=== PATIENT | male | born 1985 | race Two or more races ===

== ENCOUNTER 2020-04-02 07:53 | Emergency (ER) | payer MEDICARE, OTHER ==
[~2020-04-02] VITALS: Ht 188 cm; Wt 113.4 kg
[2020-04-02] MEDS ORDERED: DexAMETHasone SOD PHOS 10MG/1ML VIAL INJ IV ONE (08:15)
[2020-04-02 10:14] LABS: Basophils # (auto) 0 10 ^3/uL (0-0.2); Basophils % (auto) 0.5 % (0.0-2.0); Eosinophils # (auto) 0 10 ^3/uL (0-0.8); Eosinophils % (auto) 0.3 % (0.0-7.0); Hematocrit 48.5 % (41.0-53.0); Hemoglobin 16.4 g/dL (13.5-17.5); Lymphocytes # (auto) 1.4 10 ^3/uL (0.4-5.4); Lymphocytes % (auto) 24.5 % (10.0-50.0); Mean Corpuscular Hgb Conc. 33.8 g/dL (32.0-36.0); Mean Corpuscular Volume 88.6 fL (80.0-100.0); Monocytes # (auto) 0.4 10 ^3/uL (0-1.3); Monocytes % (auto) 7.8 % (0.0-12.0); Neutrophils # (auto) 3.8 10 ^3/uL (1.6-8.6); Neutrophils % (auto) 66.9 % (37.0-80.0); Nucleated Red Blood Cells % 0.3 %; Platelet Count (auto) 180 10^3/uL (140-450); Red Blood Cells 5.47 10^6/uL (4.5-5.90); Red Cell Distribution Width 13.9 % (11.8-14.3); White Blood Cell 5.7 10^3/uL (4.4-10.8)
[2020-04-02 10:32] LABS: Albumin 3.8 g/dL (3.4-5.0); Anion Gap 5 (5-15); Blood Urea Nitrogen 9 mg/dL (7-18); Calcium 8.4 mg/dL (8.5-10.1); Carbon Dioxide 27 mmol/L (21-32); Chloride 105 mmol/L (98-107); Glucose 97 mg/dL (74-106); Potassium 4.1 mmol/L (3.5-5.1); Sodium 137 mmol/L (136-145)
[2020-04-02 10:42] LABS: Alanine Aminotransferase 70 U/L (16-61); Alkaline Phosphatase 74 U/L (45-117); Aspartate Aminotransferase 37 U/L (15-37); BUN/Creatinine Ratio 10.1; Bilirubin, Total 0.4 mg/dL (0.2-1.0); CRP High Sensitivity 2.26 mg/dL (< 0.3); GFR African American 125 mL/min; GFR Non-African American 103 mL/min; Total Protein 7.8 g/dL (6.4-8.2)
[2020-04-02 12:51] VITALS: BP 132/88
== END 2020-04-02 13:00 | disposition home or self-care (01) ==
LOC: ER 07:53
DX: U07.1 COVID-19 (principal); J12.89 Other viral pneumonia; I10 Essential (primary) hypertension
CPT/HCPCS: 36415; 71045; 80053; 82728; 83605; 84484; 85025; 86141; 96374; 99284; J1100

== ENCOUNTER 2023-08-29 09:25 | Inpatient (IN) | payer MEDICARE, MEDICAID ==
[~2023-08-29] VITALS: Ht 193 cm; Wt 112.3 kg
[2023-08-29 10:48] LABS: Basophils # (auto) 0 10 ^3/uL (0-0.2); Basophils % (auto) 0.3 % (0.0-2.0); Eosinophils # (auto) 0.1 10 ^3/uL (0-0.8); Eosinophils % (auto) 0.6 % (0.0-7.0); Hematocrit 49.1 % (41.0-53.0); Hemoglobin 16.8 g/dL (13.5-17.5); Lymphocytes # (auto) 1.5 10 ^3/uL (0.4-5.4); Lymphocytes % (auto) 18.1 % (10.0-50.0); Mean Corpuscular Hemoglobin 30.7 pg (28.0-32.0); Mean Corpuscular Hgb Conc. 34.2 g/dL (32.0-36.0); Mean Corpuscular Volume 89.8 fL (80.0-100.0); Monocytes # (auto) 1.1 10 ^3/uL (0-1.3); Monocytes % (auto) 13.2 % (0.0-12.0); Neutrophils # (auto) 5.7 10 ^3/uL (1.6-8.6); Neutrophils % (auto) 67.8 % (37.0-80.0); Nucleated Red Blood Cells % 0.1 %; Red Blood Cells 5.46 10^6/uL (4.5-5.90); Red Cell Distribution Width 15.4 % (11.8-14.3); White Blood Cell 8.4 10^3/uL (4.4-10.8)
[2023-08-29 10:59] LABS: Alanine Aminotransferase 32 U/L (7-40); Albumin 4.7 g/dL (3.2-4.8); Alkaline Phosphatase 44 U/L (46-116); Anion Gap 6 (5-15); Aspartate Aminotransferase 26 U/L (13-40); BUN/Creatinine Ratio 6.4 (10.0-20.0); Bilirubin, Total 0.5 mg/dL (0.2-1.0); Blood Urea Nitrogen 7 mg/dL (9-23); Calcium 8.9 mg/dL (8.5-10.1); Carbon Dioxide 28 mmol/L (20-30); Chloride 105 mmol/L (98-107); Glucose 84 mg/dL (74-106); Potassium 4.4 mmol/L (3.5-5.1); Sodium 139 mmol/L (136-145); Total Protein 6.8 g/dL (5.7-8.2)
[2023-08-29] MEDS: cefTRIAXone 1GM/50ML D5W 50 ML IV ONE (12:00)
[2023-08-29] MEDS: IBUPROFEN 600 MG TAB PO ONE (12:01)
[2023-08-29] MEDS: AZITHROMYCIN 500MG/ 250ML 250 ML IV ONE (12:03)
[2023-08-29] MEDS: SODIUM CHLORIDE 0.9% 1,000 ML IV SCH (14:00)
[2023-08-29] MEDS ORDERED: ALBUTEROL SULF 2.5 MG/0.5ML(0.5%) NEB SOLN NEB PRN (14:00)
[2023-08-29] MEDS ORDERED: MORPHINE SULFATE INJ 2 MG/ml SYRG IV PRN (14:00)
[2023-08-29] MEDS ORDERED: NITROGLYCERIN 0.4 MG SL TAB SL PRN (14:00)
[2023-08-29 20:13] VITALS: BP 135/87; PULSE 113; RESP 16; TEMP 98.2; O2SAT 95; O2SAT 96
[2023-08-29] MEDS: MORPHINE SULFATE INJ 2 MG/ml SYRG IV PRN (22:53)
[2023-08-29] MEDS: ONDANSETRON HCL 4 MG/2 ML VIAL IV PRN (22:53)
[2023-08-30] VITALS (11 sets, daily range): BP systolic 117–140; BP diastolic 60–78; PULSE 63–103; RESP 16–21; TEMP 97.9–98.6; O2SAT 91–98
[2023-08-30 01:29] LABS: Urine Bacteria None Seen /hpf (None Seen)
[2023-08-30 01:40] LABS: Urine Blood Negative /uL (Negative); Urine Clarity Clear (Clear); Urine Color Colorless (Yellow); Urine Protein, UAD Negative (Negative); Urine Specific Gravity 1.004 (1.001-1.035); Urine Urobilinogen Normal (Negative); Urine WBC <1 /hpf (0 - 3); Urine pH 6.5 (5.0-9.0)
[2023-08-30] MEDS ORDERED: CHOL20007 PO (03:00)
[2023-08-30] MEDS ORDERED: LISD20CA PO (03:00)
[2023-08-30] MEDS ORDERED: ATOR10TA PO (03:00)
[2023-08-30] MEDS ORDERED: LISI10TA34 PO (03:00)
[2023-08-30 07:50] LABS: Basophils # (auto) 0 10 ^3/uL (0-0.2); Basophils % (auto) 0.3 % (0.0-2.0); Eosinophils # (auto) 0.1 10 ^3/uL (0-0.8); Eosinophils % (auto) 1.1 % (0.0-7.0); Hematocrit 46.5 % (41.0-53.0); Hemoglobin 15.6 g/dL (13.5-17.5); Lymphocytes # (auto) 2.7 10 ^3/uL (0.4-5.4); Lymphocytes % (auto) 35.2 % (10.0-50.0); Mean Corpuscular Hemoglobin 30.2 pg (28.0-32.0); Mean Corpuscular Hgb Conc. 33.6 g/dL (32.0-36.0); Monocytes # (auto) 1.1 10 ^3/uL (0-1.3); Monocytes % (auto) 14.8 % (0.0-12.0); Neutrophils # (auto) 3.7 10 ^3/uL (1.6-8.6); Neutrophils % (auto) 48.6 % (37.0-80.0); Nucleated Red Blood Cells % 0.1 %; Red Blood Cells 5.17 10^6/uL (4.5-5.90); Red Cell Distribution Width 15.3 % (11.8-14.3); White Blood Cell 7.7 10^3/uL (4.4-10.8)
[2023-08-30 08:12] LABS: Alanine Aminotransferase 22 U/L (7-40); Alkaline Phosphatase 39 U/L (46-116); Anion Gap 8 (5-15); Calcium 8.5 mg/dL (8.5-10.1); Carbon Dioxide 25 mmol/L (20-30); Chloride 104 mmol/L (98-107); Potassium 3.8 mmol/L (3.5-5.1); Sodium 137 mmol/L (136-145)
[2023-08-30 08:13] LABS: BUN/Creatinine Ratio 6.3 (10.0-20.0); Blood Urea Nitrogen 6 mg/dL (9-23); Glucose 70 mg/dL (74-106)
[2023-08-30 08:15] LABS: Albumin 4.2 g/dL (3.2-4.8); Aspartate Aminotransferase 24 U/L (13-40); Bilirubin, Total 0.4 mg/dL (0.2-1.0)
[2023-08-30 08:16] LABS: Total Protein 6.5 g/dL (5.7-8.2)
[2023-08-30] MEDS: AZITHROMYCIN 500MG/ 250ML 250 ML IV ONE (12:12)
[2023-08-31] VITALS (8 sets, daily range): BP systolic 122–134; BP diastolic 69–85; PULSE 52–84; RESP 20; TEMP 36.7; O2SAT 90–98
[2023-08-31] MEDS: AZITHROMYCIN 500MG/ 250ML 250 ML IV SCH (08:49)
== END 2023-08-31 19:20 | disposition home or self-care (01) | DRG 178 ==
LOC: ER 09:25 → TELE 13:57 → TELE-CENTR 13:57
PROVIDERS: ADMIT Nurse Practitioner; ATTEND Nurse Practitioner
DX: J15.69 Pneumonia due to other Gram-negative bacteria (principal); R04.2 Hemoptysis; J20.8 Acute bronchitis due to other specified organisms; J15.9 Unspecified bacterial pneumonia; E66.9 Obesity, unspecified; E78.5 Hyperlipidemia, unspecified; I10 Essential (primary) hypertension; G47.33 Obstructive sleep apnea (adult) (pediatric); Z68.30 Body mass index [BMI] 30.0-30.9, adult; Z83.3 Family history of diabetes mellitus
CPT/HCPCS: 36415; 71045; 71250; 80053; 81001; 83880; 84484; 85025; 85379; 93005; 93306; 93970; 96365; 96368; G0378; J2405